=== PATIENT | male | born 1950 | race Caucasian/White ===

== ENCOUNTER 2017-03-17 13:23 | Emergency (ER) | payer MEDICARE ==
[2017-03-17 13:37] VITALS: BP 171/81; PULSE 61; RESP 20; TEMP 98.3; O2SAT 98
[2017-03-17] MEDS ORDERED: VITA1000 PO (14:00)
[2017-03-17] MEDS ORDERED: LEVO75TA3 PO (14:00)
[2017-03-17] MEDS ORDERED: FENO145T2 PO (14:00)
[2017-03-17] MEDS ORDERED: OMEP20TA93 PO (14:00)
[2017-03-17] MEDS ORDERED: ASPI-516 CHEW (14:00)
[2017-03-17] MEDS ORDERED: LOSA50TA PO (14:00)
[2017-03-17] MEDS ORDERED: LIPI20TA PO (14:01)
[2017-03-17 14:26] LABS: AUTOMATED NEUTROPHIL # 3.6 TH/MM3 (1.8-7.7); BASOPHIL # 0.1 TH/MM3 (0-0.2); BASOPHIL % 0.9 % (0.0-2.0); EOSINOPHIL # 0.1 TH/MM3 (0-0.4); EOSINOPHIL % 2.4 % (0.0-4.0); HEMATOCRIT 39.3 % (39.0-51.0); HEMO FLAGS DIFF FINAL; LYMPH % 27.9 % (9.0-44.0); LYMPHOCYTE # 1.7 TH/MM3 (1.0-4.8); MEAN CELL VOLUME 88.9 FL (80.0-100.0); MEAN CORPUSCULAR HEMOGLOBIN 30.7 PG (27.0-34.0); MEAN CORPUSCULAR HGB CONC 34.5 % (32.0-36.0); MONO % 10.3 % (0.0-8.0); NEUT % 58.5 % (16.0-70.0); PLATELET COUNT 283 TH/MM3 (150-450); RED BLOOD COUNT 4.41 MIL/MM3 (4.50-5.90); RED CELL DISTRIBUTION WIDTH 12.7 % (11.6-17.2); WHITE BLOOD COUNT 6.1 TH/MM3 (4.0-11.0)
[2017-03-17] MEDS ORDERED: ASPIRIN 325 MG TAB PO ONE (14:30)
[2017-03-17] MEDS ORDERED: SODIUM CHLORIDE 0.9% FLUSH 10 ML FLUSH IVF PRN (14:30)
--- NOTE | 2017-03-17 14:49 | PD ---
HPI Chief Complaint: Chest Pain Time Seen by Provider: 14:16 Travel History International Travel<30 days: No Contact w/Intl Traveler<30days: No Traveled to known affect area: No History of Present Illness HPI the patient 66 years old and arrives to the ER due to chest pain on the right side described as a pressure-like sensation applied by a fingertip. He has no shortness of breath. He does report a pleuritic component with deep inspiration. He drove here from [place], [address] yesterday. He reports doing a fair amount of yard work a few days ago. He denies injury. There is some pain radiating from the right chest into the region of the right hand. He has a history of valve transplant however denies coronary artery disease in the family. He has hypertension. He denies diabetes hyperlipidemia and smoking. He has no personal history of coronary artery disease. The CPK was markedly elevated leading to more lab work. PFSH Past Medical History High Cholesterol: Yes Diminished Hearing: No Hypertension: Yes Thyroid Disease: Yes Tetanus Vaccination: Unknown Influenza Vaccination: Yes Past Surgical History Appendectomy: Yes Tonsillectomy: Yes Other Surgery: Yes (hernia, blot clots in testicle , deviated septum) Social History Alcohol Use: Yes (occ) Tobacco Use: No Substance Use: No Allergies-Medications (Allergen,Severity, Reaction): Coded Allergies: No Known Allergies (Verified Allergy, Unknown, 03/17/17) Reported Meds & Prescriptions Reported Meds & Active Scripts Active Reported Lipitor (Atorvastatin Calcium) 20 Mg Tab 20 Mg PO HS Aspirin 81 Mg Chew 81 Mg CHEW DAILY Losartan (Losartan Potassium) 50 Mg Tab 50 Mg PO DAILY Omeprazole 20 Mg Tab 20 Mg PO DAILY Levothyroxine (Levothyroxine Sodium) 75 Mcg Tab 75 Mcg PO DAILY Vitamin D-1000 (Cholecalciferol) 1,000 Unit Tab 1,000 Units PO DAILY Fenofibrate 145 Mg Tab 145 Mg PO DAILY Review of Systems Except as stated in HPI: all other systems reviewed are Neg General / Constitutional: No: Fever Cardiovascular: Positive: Chest Pain or Discomfort Physical Exam Narrative GENERAL: 66 yo M, WNWD, mild distress 2/2 anxiety and/or pain SKIN: Warm and dry. HEAD: Atraumatic. Normocephalic. EYES: Pupils equal and round. No scleral icterus. No injection or drainage. ENT: No nasal bleeding or discharge. Mucous membranes pink and moist. NECK: Trachea midline. No JVD. CARDIOVASCULAR: Regular rate and rhythm. In the region of the T4-5 dermatome somewhat medially just lateral to the sternal margin. RESPIRATORY: No accessory muscle use. Clear to auscultation. Breath sounds equal bilaterally. GASTROINTESTINAL: Abdomen soft, non-tender, nondistended. Hepatic and splenic margins not palpable. MUSCULOSKELETAL: Extremities without clubbing, cyanosis, or edema. No obvious deformities. NEUROLOGICAL: Awake and alert. No obvious cranial nerve deficits. Motor grossly within normal limits. Five out of 5 muscle strength in the arms and legs. Normal speech. PSYCHIATRIC: Appropriate mood and affect; insight and judgment normal. Data Data Last Documented VS Vital Signs Date Time Temp Pulse Resp B/P (MAP) Pulse Ox O2 Delivery O2 Flow Rate FiO2 03/17/17 16:10 03/17/17 15:10 60 16 97 Room Air 03/17/17 13:37 98.3 VS reviewed Orders Orders Electrocardiogram (03/17/17 14:16) Basic Metabolic Panel (Bmp) (03/17/17 14:16) Ckmb (Isoenzyme) Profile (03/17/17 14:16) Complete Blood Count With Diff (03/17/17 14:16) Magnesium (Mg) (03/17/17 14:16) Prothrombin Time / Inr (Pt) (03/17/17 14:16) Act Partial Throm Time (Ptt) (03/17/17 14:16) Troponin I (03/17/17 14:16) Chest, Single Ap (03/17/17 14:16) Ecg Monitoring (03/17/17 14:16) Iv Access Insert/Monitor (03/17/17 14:16) Oximetry (03/17/17 14:16) Oxygen Administration (03/17/17 14:16) Aspirin (Aspirin) (03/17/17 14:30) Sodium Chloride 0.9% Flush (Ns Flush) (03/17/17 14:30) Ct Pulmonary Angiogram (03/17/17 14:16) CKMB (03/17/17 14:20) CKMB% (03/17/17 14:20) Iohexol 350 Inj (Omnipaque 350 Inj) (03/17/17 15:30) Ed Discharge Order (03/17/17 16:02) Labs Laboratory Tests Test 03/17/17 14:20 White Blood Count 6.1 TH/MM3 Red Blood Count 4.41 MIL/MM3 Hemoglobin 13.5 GM/DL Hematocrit 39.3 % Mean Corpuscular Volume 88.9 FL Mean Corpuscular Hemoglobin 30.7 PG Mean Corpuscular Hemoglobin Concent 34.5 % Red Cell Distribution Width 12.7 % Platelet Count 283 TH/MM3 Mean Platelet Volume 7.8 FL Neutrophils (%) (Auto) 58.5 % Lymphocytes (%) (Auto) 27.9 % Monocytes (%) (Auto) 10.3 % Eosinophils (%) (Auto) 2.4 % Basophils (%) (Auto) 0.9 % Neutrophils # (Auto) 3.6 TH/MM3 Lymphocytes # (Auto) 1.7 TH/MM3 Monocytes # (Auto) 0.6 TH/MM3 Eosinophils # (Auto) 0.1 TH/MM3 Basophils # (Auto) 0.1 TH/MM3 CBC Comment DIFF FINAL Differential Comment Prothrombin Time 11.2 SEC Prothromb Time International Ratio 1.0 RATIO Activated Partial Thromboplast Time 27.1 SEC Blood Urea Nitrogen 13 MG/DL Creatinine 0.88 MG/DL Random Glucose 101 MG/DL Calcium Level 8.6 MG/DL Magnesium Level 2.2 MG/DL Sodium Level 142 MEQ/L Potassium Level 4.2 MEQ/L Chloride Level 108 MEQ/L Carbon Dioxide Level 28.8 MEQ/L Anion Gap 5 MEQ/L Estimat Glomerular Filtration Rate 87 ML/MIN Total Creatine Kinase 103 U/L Creatine Kinase MB 1.9 NG/ML Troponin I LESS THAN 0.02 NG/ML MDM Medical Decision Making Medical Screen Exam Complete: Yes Emergency Medical Condition: Yes Medical Record Reviewed: Yes Differential Diagnosis NSTEMI, unstable angina, coronary vasospasm, PE, PTX, aortic dissection, pericarditis, myocarditis, endocarditis, PNA, esophageal disease, aneurysm, musculoskeletal etiologies, anxiety, cocaine/sympathomimetic abuse Narrative Course EKG shows a sinus rhythm with a rate of 58 and no acute ischemic injury pattern , possible right bundle branch block Last Impressions Chest X-Ray 03/17/171415 Signed Impressions: Service Date/Time: March 14:23 - CONCLUSION: No acute cardiopulmonary abnormality is identified. Huang Arias MD CT Angiography 03/17/17 1416 Signed Impressions: Service Date/Time: March 15:21 - CONCLUSION: No evidence of pulmonary embolism Huang Cid MD There is a focus of tenderness in the right chest wall not much larger than the fingertip which reproduces the exact pain initially described and because of this I think an occlusive coronary processes much less likely. Images of that area and the CT show no significant abnormality and for that reason a musculoskeletal cause is considered most probable. The patient has verbalized agreement to follow up with his primary care provider upon returning home. He understands that a stress test is the next step and discharge from ED is dependent upon compliance with plan as discussed. Diagnosis Primary Impression: Musculoskeletal chest pain Referrals: Primary Care Physician CALL TOMORROW MORNING TO ESTABLISH FOLLOW UP. Additional Instructions: You have a choice when it comes to health care, and we are glad that you chose [facility]. Hopefully, we have met your expectations on today's visit. You are welcome to return to [facility] at any time, as we are committed to meeting the health care needs of our community. PLEASE BE SURE TO FOLLOW UP WITH YOU PRIMARY DOCTOR TO ESTABLISH PROMPT CARDIAC STRESS TEST AND A MORE THOROUGH CARDIOLOGY WORK UP. Med/Other Pt SpecificInfo: Prescription(s) given, No Change to Meds Disposition: 01 DISCHARGE HOME Condition: Venkata Cueto MD Mar 17, 2017 14:49
[2017-03-17 14:52] LABS: APTT (PATIENT) 27.1 SEC (24.3-30.1); PROTHROMBIN TIME - PATIENT 11.2 SEC (9.8-11.6)
[2017-03-17 14:57] LABS: CHLORIDE 108 MEQ/L (98-107); POTASSIUM 4.2 MEQ/L (3.5-5.1); SODIUM (NA) 142 MEQ/L (136-145)
[2017-03-17 15:01] LABS: ANION GAP 5 MEQ/L (5-15); BICARBONATE 28.8 MEQ/L (21.0-32.0); BLOOD UREA NITROGEN 13 MG/DL (7-18); MAGNESIUM 2.2 MG/DL (1.5-2.5)
[2017-03-17 15:04] LABS: GLOMERULAR FILTRATION RATE 87 ML/MIN (>89)
[2017-03-17 15:08] LABS: CREATINE KINASE 103 U/L (39-308)
[2017-03-17 15:09] VITALS: RESP 16; O2SAT 97
[2017-03-17 15:10] VITALS: BP 163/77; PULSE 60; RESP 16; O2SAT 97
[2017-03-17 15:20] LABS: CKMB 1.9 NG/ML (0.5-3.6)
[2017-03-17] MEDS ORDERED: IOHEXOL 350 MG/ML 10 ML VIAL (for RAD DIAG) IVCONTRAST ONE (15:30)
--- NOTE | 2017-03-17 15:40 | RADRPT ---
EXAM DATE/TIME: 03/17/2017 15:21 [facility] COMPARISON: No previous studies available for comparison. INDICATIONS : Right chest and arm pain. IV CONTRAST: 75 cc Omnipaque 350 (iohexol) IV RADIATION DOSE: 14.64 CTDIvol (mGy) MEDICAL HISTORY : Hypertension. SURGICAL HISTORY : Appendectomy. ENCOUNTER: Initial ACUITY: 1 day PAIN SCALE: 7/10 LOCATION: Right chest TECHNIQUE: Volumetric scanning of the chest was performed using a pulmonary embolism protocol MIP images were re constructed. Using automated exposure control and adjustment of the mA and/or kV according to patien t size, radiation dose was kept as low as reasonably achievable to obtain optimal diagnostic quality images. DICOM format image data is available electronically for review and comparison. Follow-up recommendations for detected pulmonary nodules are based at a minimum on nodule size and pa tient risk factors according to Fleischner Society Guidelines. FINDINGS: PULMONARY ARTERIES: No filling defects are seen in the pulmonary arteries through the segmental level. LUNGS: There is no consolidation or pneumothorax . No concerning pulmonary nodule is visualized. PLEURAE: There is no pleural thickening or pleural effusion. MEDIASTINUM: There is good visualization of the great vessels of the middle mediastinum. No evidence of mediastin al or hilar adenopathy/mass. MUSCULOSKELETAL: Within normal limits for patient age. MISCELLANEOUS: The visualized upper abdominal organs demonstrate no acute abnormality. CONCLUSION: No evidence of pulmonary embolism Huang Cid MD on March 17, 2017 at 15:35 Board Certified Radiologist. This report was verified electronically.
--- NOTE | 2017-03-17 15:54 | RADRPT ---
EXAM DATE/TIME: 03/17/2017 14:23 [facility] COMPARISON: CT PULMONARY ANGIOGRAM, March 17, 2017, 15:21. INDICATIONS : Chest pain. MEDICAL HISTORY : Hypertension. SURGICAL HISTORY : None. ENCOUNTER: Initial ACUITY: 1 day PAIN SCORE: 6/10 LOCATION: Bilateral chest FINDINGS: Portable AP view of the chest demonstrates a normal-sized cardiac silhouette. No effusion, consolidat ion, or pneumothorax is visualized. The bones and soft tissues demonstrate no acute abnormality. CONCLUSION: No acute cardiopulmonary abnormality is identified. Huang Arias MD on March 17, 2017 at 15:52 Board Certified Radiologist. This report was verified electronically.
--- NOTE | 2017-03-18 18:21 | EKG ---
Date Performed: 03/17/2017 Time Performed: 14:10:23 PTAGE: 66 years EKG: SINUS BRADYCARDIA INCOMPLETE RIGHT BUNDLE BRANCH BLOCK BORDERLINE ECG INTERPRETATION BASED ON A DEFAULT AGE OF 42 YEARS NO PREVIOUS TRACING DOCTOR: Tal Constantino Interpretating Date/Time 03/18/2017 18:16:26
== END 2017-03-17 16:14 | disposition home or self-care (01) ==
LOC: PHED 13:23
DX: R07.89 Other chest pain (principal); R00.1 Bradycardia, unspecified; I45.10 Unspecified right bundle-branch block; E78.00 Pure hypercholesterolemia, unspecified; I10 Essential (primary) hypertension; Z79.82 Long term (current) use of aspirin
CPT/HCPCS: 71010; 71275; 80048; 82550; 82552; 83735; 84484; 85025; 85610; 85730; 93005; 99285; Q9967